=== PATIENT | male | born 1965 | race African-American/Black ===

== ENCOUNTER → 2023-04-08 10:01 | Outpatient (BNVA) | payer SELFPAY | PROVIDERS: Visit Provider Physician Assistant | DX: Z02.79 Encounter for issue of other medical certificate (principal) ==

== ENCOUNTER → 2024-03-24 10:33 | Outpatient (BNVA) | payer SELFPAY | PROVIDERS: Visit Provider Physician Assistant | DX: Z02.79 Encounter for issue of other medical certificate (principal); Z13.1 Encounter for screening for diabetes mellitus | CPT/HCPCS: 82947 ==